=== PATIENT | female | born 1985 | race Two or more races ===

== ENCOUNTER 2019-04-16 16:20 | Emergency (ER) | payer SELFPAY ==
[~2019-04-16] VITALS: Ht 170.2 cm; Wt 116.1 kg
[2019-04-16 16:50] LABS: Basophils # (auto) 0.1 uL; Eosinophils # (auto) 0 uL; Eosinophils % (auto) 0.3 % (0.0-7.0); Hemoglobin 12.9 g/dL (12.2-16.2); Lymphocytes # (auto) 1.9 uL; Lymphocytes % (auto) 15.8 % (10.0-50.0); Mean Corpuscular Hemoglobin 28.7 pg (28.0-32.0); Mean Corpuscular Hgb Conc. 33.1 g/dL (32.0-36.0); Mean Corpuscular Volume 86.5 fL (80.0-100.0); Monocytes # (auto) 0.9 uL; Monocytes % (auto) 7.6 % (0.0-12.0); Neutrophils # (auto) 9.3 uL; Neutrophils % (auto) 75.3 % (37.0-80.0); Platelet Count (auto) 364 10^3/uL (140-450); Red Cell Distribution Width 15.1 % (11.8-14.3); White Blood Cell 12.4 10^3/uL (4.4-10.8)
[2019-04-16 17:08] LABS: Alanine Aminotransferase 25 U/L (13-56); Albumin 3.3 g/dL (3.4-5.0); Anion Gap 12 (5-15); Aspartate Aminotransferase 19 U/L (15-37); BUN/Creatinine Ratio 14.3; Blood Urea Nitrogen 9 mg/dL (7-18); Calcium 8.1 mg/dL (8.5-10.1); Carbon Dioxide 20 mmol/L (21-32); Chloride 109 mmol/L (98-107); GFR African American 141 mL/min; GFR Non-African American 116 mL/min; Glucose 100 mg/dL (74-106); Potassium 3.7 mmol/L (3.5-5.1); Sodium 141 mmol/L (136-145)
[2019-04-16 17:12] LABS: Alkaline Phosphatase 120 U/L (45-117); Bilirubin, Total 0.3 mg/dL (0.2-1.0); Total Protein 7.2 g/dL (6.4-8.2)
[2019-04-16] MEDS ORDERED: SODIUM CHLORIDE 0.9% 1,000 ML IV ONE (18:15)
[2019-04-16 19:59] VITALS: BP 156/62
== END 2019-04-16 20:51 | disposition home or self-care (01) ==
LOC: ER 16:23
DX: O99.281 Endocrine, nutritional and metabolic diseases complicating pregnancy, first trimester (principal); E86.0 Dehydration; Z3A.01 Less than 8 weeks gestation of pregnancy
CPT/HCPCS: 36415; 76801; 80053; 84702; 85025; 93005; 96360; 99284; J7030

== ENCOUNTER 2019-04-19 16:41 | Emergency (ER) | payer MEDICAID ==
[~2019-04-19] VITALS: Ht 170.2 cm; Wt 114.1 kg
[2019-04-19 17:16] LABS: Basophils # (auto) 0.1 uL; Eosinophils # (auto) 0.1 uL; Eosinophils % (auto) 0.4 % (0.0-7.0); Hematocrit 36.9 % (36.0-46.0); Hemoglobin 12.2 g/dL (12.2-16.2); Lymphocytes % (auto) 13.9 % (10.0-50.0); Mean Corpuscular Hemoglobin 28.4 pg (28.0-32.0); Mean Corpuscular Hgb Conc. 32.9 g/dL (32.0-36.0); Mean Corpuscular Volume 86.4 fL (80.0-100.0); Monocytes # (auto) 0.8 uL; Monocytes % (auto) 5.8 % (0.0-12.0); Neutrophils # (auto) 11.2 uL; Neutrophils % (auto) 78.9 % (37.0-80.0); Platelet Count (auto) 349 10^3/uL (140-450); Red Blood Cells 4.28 10^6/uL (4.0-5.20); Red Cell Distribution Width 15.1 % (11.8-14.3); White Blood Cell 14.2 10^3/uL (4.4-10.8)
[2019-04-19 17:30] LABS: Albumin 3.4 g/dL (3.4-5.0); BUN/Creatinine Ratio 14.5; Potassium 3.2 mmol/L (3.5-5.1)
[2019-04-19 17:31] LABS: Bilirubin, Total 0.5 mg/dL (0.2-1.0); Total Protein 7.8 g/dL (6.4-8.2)
[2019-04-19] MEDS ORDERED: SODIUM CHLORIDE 0.9% 1,000 ML IVB ONE (20:17)
[2019-04-19] MEDS ORDERED: ONDANSETRON HCL 4 MG/2 ML VIAL IV ONE (20:30)
[2019-04-20 00:19] LABS: Urine Bacteria FEW /hpf (None Seen); Urine Blood Negative /uL (Negative); Urine Hyaline Cast FEW /lpf (0 - 2); Urine Mucus FEW (None Seen); Urine WBC 20 /hpf (0 - 5)
[2019-04-20 01:07] VITALS: BP 101/68
== END 2019-04-20 01:55 | disposition home or self-care (01) ==
LOC: ER 16:44
DX: O21.0 Mild hyperemesis gravidarum (principal); O16.1 Unspecified maternal hypertension, first trimester; Z3A.09 9 weeks gestation of pregnancy
CPT/HCPCS: 36415; 80053; 81001; 82010; 84702; 85025; 94761; 96361; 96374; 99283; J2405; J7030